=== PATIENT | female | born 1985 | race Caucasian/White ===

== ENCOUNTER 2023-03-29 08:21 | Outpatient (CLI) | payer OTHER, SELFPAY ==
--- NOTE | ~2023-03-29 | MMUS_ITS ---
EXAMINATION: MM diagnostic leonardo BI w dona, US breast BI limited HISTORY: Palpable lumps of the lower right breast and lower outer left breast. TECHNIQUE: Craniocaudal, mediolateral, and mediolateral oblique 3-D tomosynthesis images of the breas ts were performed and synthetic 2-D images were generated. CAD analysis was submitted and interpreted . High resolution limited bilateral breast ultrasound was performed. COMPARISON: None, baseline BREAST PARENCHYMAL COMPOSITION: There are scattered areas of fibroglandular density. FINDINGS: MAMMOGRAPHIC FINDINGS: No suspicious mass, calcification, or architectural distortion are identified in either breast to sug gest malignancy. No mammographic correlate is identified for the reported palpable abnormality of eit her breast. ULTRASOUND: No suspicious sonographic correlate is identified for the reported palpable abnormality of either marcia ast. There is a 4 mm cyst of the right breast at the 6:00 location 3 cm from the nipple. IMPRESSION: 1. No suspicious mammographic or sonographic correlate is identified for the reported palpable abnorm ality of concern in either breast. Further evaluation at this time should be based on clinical assess ment. Continued follow-up physical examination is recommended. 2. Recommend routine screening mammography beginning at age 40. BI-RADS Category 2: Benign finding(s). Reviewed, dictated and finalized at location A. IMPRESSION: 1. No suspicious mammographic or sonographic correlate is identified for the re ported palpable abnormality of concern in either breast. Further evaluation at this time should be based on clinical assessment. Continued follow-up physical examination is recommended. 2. Recommend routine screening mammography beginning at age 40. BI-RADS Category 2: Benign finding(s).
== END 2023-03-29 08:22 ==
PROVIDERS: PCP Obstetrics & Gynecology; Visit Provider Obstetrics & Gynecology
DX: N63.23 Unspecified lump in the left breast, lower outer quadrant (principal)
CPT/HCPCS: 76642; 77062; 77066; G0279

== ENCOUNTER 2023-06-21 01:45 | Day surgery (SDC) | payer OTHER, SELFPAY ==
[2023-06-16 14:44] VITALS: BMI 33.9
--- NOTE | 2023-06-16 14:50 | PC.NURSE ---
Report to the Outpatient Waiting Room, entrance under the green pavilion located off [facility], at time 11:15 on date 06/21/23. Planned Procedure Time: 1:15. Time changes happen often and if your time is changed the preop area will call you the afternoon before. - You and your visitor will be asked to self-screen and do not enter if you have any COVID symptoms. - A mask is optional within the hospital at this time. Patients may have clear liquids (water, carbonated beverages, clear teas, apple juice) until 3 hours prior to surgery (10:15) with a maximum of 20 ounces. - No food from midnight until time of surgery Take the following medications with a SIP of water the morning of surgery: INSULIN - 1/2 OF NORMAL DOSE (10 UNITS) DO NOT STOP ANY OF YOUR OTHER PRESCRIPTION MEDICATIONS PRIOR TO SURGERY ?EXCEPT THE FOLLOWING Medications to discontinue per physician: VITAMINS/SUPPLEMENTS Date to take last dose: 06/17/23 Please no make-up, nail micronesian, hairspray, perfume, deodorant, or body powder the day of surgery. No jewelry (including any body piercings) or valuables the day of surgery, leave them at home. Please take a shower or bath the night before, or the morning of, surgery with an antibacterial soap. Wear comfortable, loose fitting clothing. - Jewelry must be removed prior to entering the operating room. Rings and piercings that are not removed may be cut off. - The hospital will not accept responsibility for valuables. - Please leave all valuables, including medications, at home the day of surgery. If you are going home after surgery, a licensed cdl team truck driver must drive you home. - NO public transportation without another adult if you receive anesthesia. - We recommend that an adult stay with you for 24 hours following discharge. - We also recommend that you do not drive, make important decision, drink alcoholic beverages, or take any drugs that were not prescribed by your health care provider for at least 24 hours after your discharge time. Follow any additional instructions given to you from your surgeon. If you or anyone in your household have experienced Covid symptoms in the past week, please notify your surgeon or the nurse liaison at the phone number below for possible testing. Telephone instructions given to PT - DIONE MCGRAW and asked if any additional questions and then verbalized understanding. Patient advised to call surgeon office or pre surgery nurse liaison [phone] if any additional questions.
--- NOTE | 2023-06-20 11:07 | PM.IMHP ---
H&P: HPI History of Present Illness Date/Time: 06/20/23 11:07 Chief Complaint: AUB Narrative: Joanna is a 37yo P1001, who presents for scheduled surgery. She reports her cycles are decently regular, but are prolonging (~10days) and heavy w/ clots on days 2-4. She also has some cramping. She has DM that is completely uncontrolled; a1c on 02/05/23 was 12.9 --> now 8.8 on 05/07/23. She has PCOS (she didn't know that); free T is >10, total T is ~90. Wondering about a testosterone carolyn; has vasectomy. 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 EMB was attempted in office but was unsuccessful (only obtained endocervical tissue). Review of Systems Constitutional: Constitutional: Denies chills, Denies fever(s) and Denies headache(s) Eyes: Eyes: Denies change in vision ENT: Denies dizziness and Denies headache(s) Cardiovascular: Cardiovascular: Denies chest pain and Denies dyspnea Respiratory: Respiratory: Denies cough and Denies dyspnea Gastrointestinal: Gastrointestinal: Denies abdominal pain and Denies change in stool character Genitourinary: Genitourinary: Reports abnormal menses, Reports menorrhagia, Reports dysmenorrhea, Denies pelvic pain, Denies vaginal discharge, Denies vaginal odor and Denies vaginal pruritus Neurologic: Denies dizziness and Denies headache(s) Psychiatric: Psychiatric: Denies anxiety and Denies depression [facility] Past Medical History Medical History Diabetes Heart problem High blood pressure Surgical History Surgical History Delivery by section 2004 H/O gynecological procedure EMB 05/11/2023 Family History Family History Mother Cystic fibrosis Legal Guardian No problems noted. 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 Gender identity (if verbalized by the patient): Female Sexual Orientation (if Verbalized by the Patient): Straight or Heterosexual Spiritual care concerns: No Meds Home Medications and Allergies Home Medications Medication Instructions Recorded Confirmed Type magnesium 200 mg tablet 200 mg PO DAILY 02/25/23 06/16/23 History vitamin E (dl, acetate) 90 mg (200 90 mg PO DAILY 02/25/23 06/16/23 History unit) capsule spironolactone 50 mg tablet 50 mg PO DAILY #90 tabs 05/11/23 06/16/23 Rx flash glucose sensor (FreeStyle #3 ea 06/14/23 Rx Shania 14 Day Sensor kit) metformin 1,000 mg tablet 1,000 mg PO DAILY #90 tabs 06/14/23 06/16/23 Rx ferrous sulfate 325 mg (65 mg 325 mg PO DAILY 06/16/23 06/16/23 History iron) tablet (Iron (ferrous sulfate)) insulin NPH isoph U-100 human 100 20 unit subcut BID 06/16/23 06/16/23 History unit/mL (3 mL) subcutaneous pen (Novolin N FlexPen) insulin regular human 100 unit/mL 1 sliding scale dose subcut 06/16/23 06/16/23 History (3 mL) subcutaneous pen (Novolin R USEASDIRECTD FlexPen) omega 4-ktc-ror-fish oil 1,000 mg 1 cap PO DAILY 06/16/23 06/16/23 History (120 mg-180 mg) capsule (Fish Oil) vitamin D3 1,250 mcg (50,000 1 cap PO DAILY 06/16/23 06/16/23 History unit)-vitamin K2 200 mcg capsule Allergies Allergy/AdvReac Type Severity Reaction Status Date / Time No Known Allergies All
--- NOTE | 2023-06-21 10:34 | WPDHPUPDATE1 ---
History and Physical Update Update Date/Time: 06/21/23 10:34 History and Physical has been reviewed, including an updated exam of the patient. There are NO changes in the patient's condition. Risks, benefits, and alternatives have been discussed and questions answered. Patient agrees to proceed with hysteroscopy with D&C.
--- NOTE | 2023-06-21 10:55 | WPDANESEPPF ---
Anes - Initial Pre Proc Eval Procedure: Operation Date: 06/21/23 11:45 Proposed Procedures p Hysteroscopy Dilation and Curettage - Vivian Morrison MD Date/Time: 06/21/23 10:55 Surgeon: Vivian Morrison MD Pre Op Diagnosis: abnormal uterine bleeding Patient Data Age: 37 Gender: F Height: 1.5 m Weight: 76.2 kg Allergies Allergy/AdvReac Type Severity Reaction Status Date / Time No Known Allergies Allergy Mild Verified 06/16/23 14:40 Home Medications Medication Instructions Recorded Confirmed Type magnesium 200 mg tablet 200 mg PO DAILY 02/25/23 06/16/23 History vitamin E (dl, acetate) 90 mg (200 90 mg PO DAILY 02/25/23 06/16/23 History unit) capsule spironolactone 50 mg tablet 50 mg PO DAILY #90 tabs 05/11/23 06/16/23 Rx flash glucose sensor (FreeStyle #3 ea 06/14/23 Rx Shania 14 Day Sensor kit) metformin 1,000 mg tablet 1,000 mg PO DAILY #90 tabs 06/14/23 06/16/23 Rx ferrous sulfate 325 mg (65 mg 325 mg PO DAILY 06/16/23 06/16/23 History iron) tablet (Iron (ferrous sulfate)) insulin NPH isoph U-100 human 100 20 unit subcut BID 06/16/23 06/16/23 History unit/mL (3 mL) subcutaneous pen (Novolin N FlexPen) insulin regular human 100 unit/mL 1 sliding scale dose subcut 06/16/23 06/16/23 History (3 mL) subcutaneous pen (Novolin R USEASDIRECTD FlexPen) omega 7-jby-odl-fish oil 1,000 mg 1 cap PO DAILY 06/16/23 06/16/23 History (120 mg-180 mg) capsule (Fish Oil) vitamin D3 1,250 mcg (50,000 1 cap PO DAILY 06/16/23 06/16/23 History unit)-vitamin K2 200 mcg capsule acetaminophen 500 mg tablet 1,000 mg PO TID #60 tabs 06/21/23 Rx ibuprofen 800 mg tablet 800 mg PO TID #30 tabs 06/21/23 Rx Patient hx anesthesia problems: none Family hx anesthesia problems: none Results Review: All pre-operative results and documents have been reviewed as part of the pre-operative evaluation. [facility] Past Medical History Medical History Diabetes Heart problem High blood pressure Surgical History Surgical History Delivery by section 2004 H/O gynecological procedure EMB 05/11/2023 Family History Family History Mother Cystic fibrosis Legal Guardian No problems noted. 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 Gender identity (if verbalized by the patient): Female Sexual Orientation (if Verbalized by the Patient): Straight or Heterosexual Spiritual care concerns: No Anes - Eval Final PreProcedure Day of Procedure 06/21/23 10:55 Patient weight: obese Heart: regular rate and rhythm Lungs: clear to auscultation Airway: Mallampati scale class II Neurological: alert and oriented Last oral intake: >/= 8 hours ASA classification: III Emergent: no Anesthetic plan: proceed Anesthesia type and monitoring: general GIVS and standard monitoring Results Review: All pre-operative results and documents have been reviewed as part of the pre-operative evaluation. Informed Consent: The patient's anesthetic plan and its attendant risks and benefits were discussed with the patient/family/POA. Questions were solicited and answers provided to the satisfaction of the patient/family/POA.
[2023-06-21 11:12] LABS: Glucose Point of Care 174 mg/dl (65-105)
[2023-06-21 11:13] LABS: Hematocrit 43.9 % (37.0-47.0)
[2023-06-21 11:14] VITALS: BP 133/87; PULSE 101; RESP 18; TEMP 36.8; O2SAT 99
[2023-06-21] MEDS: KETOROLAC 30 MG/ML VIAL (*BKC) IV PUSH (11:47)
--- NOTE | 2023-06-21 12:12 | W.PM.PROC2 ---
Procedure Note - Detailed Date of Procedure 06/21/23 Pre-op Diagnosis abnormal uterine bleeding PCOS Post-op Diagnosis Same Procedure Performed Hysteroscopy with endometrial biopsy Surgeon Vivian Morrison MD Anesthesia MAC Findings Tortuous cervix (the canal trended upward, then half way trended downward). Normal cavity with bilateral tubal ostia visualized. Good hemostasis at end of case. Description of Procedure Joanna was taken to the operating room where she was placed under sedation without complications. She was then prepped and draped in the usual sterile fashion in the dorsal lithotomy position with her legs in low Colton stirrups. A time-out was performed and no perioperative antibiotics were indicated. A bivalve speculum was placed within the vagina where the cervix was easily identified. The anterior lip of the cervix was grasped with a single-tooth tenaculum. A sound was used to measure the uterus; but showed 4cm (also noted when performing in office EMB). The hysteroscope was advanced into the cervix and uterine cavity with the above findings noted. Due to the tortuous cervix; an endometrial sample was obtained using the small Aveta tissue sampler. A sample was obtained from all quadrants of the uterus. Good hemostasis was noted. All instruments were removed from the vagina. Sponge, lap, instrument, and needle counts were correct at the end of the procedure. Patient was awoken from anesthesia and taken to recovery with plans of same-day discharge home. Estimated Blood Loss 5 IV Fluids 650 (Fluid deficit: 50cc) Pathology Yes (endometrial shavings) Complications No immediate complications Condition Stable Disposition Same day [facility] Billing Surgery - Charge Forward: Surgery Billing
[2023-06-21 12:17] VITALS: BP 122/85; PULSE 96; RESP 16; O2SAT 95
[2023-06-21 12:26] LABS: Glucose Point of Care 166 mg/dl (65-105)
[2023-06-21 12:50] VITALS: BP 104/78; PULSE 92; RESP 16
[2023-06-21] MEDS: oxyCODONE HCL (*CRX) 5 MG TAB IR PO (12:53)
[2023-06-21 13:20] VITALS: BP 133/84; PULSE 85; RESP 16
== END 2023-06-21 13:30 | disposition home or self-care (01) ==
PROVIDERS: PCP Family Medicine; Visit Provider Obstetrics & Gynecology
PROC: 0U5B8ZZ Destruction of Endometrium, Via Natural or Artificial Opening Endoscopic (ICD-10-PCS; CPT 58563; principal; 2023-06-21 11:45)
DX: N93.9 Abnormal uterine and vaginal bleeding, unspecified (principal); E28.2 Polycystic ovarian syndrome; Z79.4 Long term (current) use of insulin; I10 Essential (primary) hypertension; E11.9 Type 2 diabetes mellitus without complications; Z79.84 Long term (current) use of oral hypoglycemic drugs; F17.290 Nicotine dependence, other tobacco product, uncomplicated; F12.90 Cannabis use, unspecified, uncomplicated; E66.9 Obesity, unspecified; Z68.38 Body mass index [BMI] 38.0-38.9, adult
CPT/HCPCS: 58558; 36415; 82948; 85014; 85018; 88305; A9270; J1885; J2250; J2704; J3010

== ENCOUNTER 2023-09-11 20:11 | Emergency (ER) | payer OTHER, SELFPAY ==
--- NOTE | ~2023-09-11 | CT_ITS ---
Non-contrast CT scan of the Abdomen and Pelvis Clinical indication: Abdominal pain Technique: 2.5 mm axial scans were obtained through the abdomen and pelvis without intravenous or or al contrast. Dose reduction technique was used on this scan by utilizing automated exposure control a nd iterative reconstruction technique. The dose-length product (DLP) was 798.07 mGy-cm. Findings: Images through the lung bases reveal extensive consolidation left lower lobe, with somewha t patchy nodular appearance, most consistent with pneumonia.. There is no evidence of renal or ureteral calculi. The kidneys and the ureters are nondilated. The liver, spleen, pancreas, gallbladder, and right adrenal gland appear normal. Left adrenal nodule demonstrates Hounsfield units of 5, consistent with benign adenoma. There is no aortic aneurysm. There is no evidence of bowel obstruction. Images through the pelvis were performed. There is no evidence of ascites or lymphadenopathy. Urinary bladder unremarkable. No adnexal mass seen. Impression: Extensive left lower lobe pneumonia. Left adrenal adenoma. Reviewed, dictated and finalized at [facility]. AGE CLERK Impression: Extensive left lower lobe pneumonia. Left adrenal adenoma.
[2023-09-11 20:16] VITALS: BP 143/101; PULSE 109; RESP 18; TEMP 36.7; O2SAT 99
--- NOTE | 2023-09-11 20:29 | ED.ABDPAIN ---
HPI - Abdominal Pain General Chief Complaint: Abdominal Pain Stated Complaint: N/V/D, abd pain Time Seen by Provider: 09/11/23 20:24 Source: patient and other ( Fiance) Mode of arrival: ambulatory Limitations: no limitations History of Present Illness HPI narrative: this is a 37-year-old female who presents with nausea, vomiting, diarrhea. They also have diffuse but generalized abdominal pain above the umbilicus across the right upper quadrant / epigastrium/ left upper quadrant and radiating upward. In addition she notes low back pain, along the left flank. she is having generalized weakness. She has had numerous episodes of diarrhea that has been nonbloody. She has had approximately 5 episodes of nonbloody nonbilious emesis. She has concern for dehydration. No history of fevers. She does have a history of type 2 diabetes mellitus and is on a regimen of Mounjaro/tirzepatide (5mg weekly, dose increased last month, last dose Wednesday) , 36 U Toujeo/insulin glargine daily (not taken today), metformin 1000mg BID, and an additional fast acting insulin PRN. Her fiance with whom she lives has been sick with sinus infection but otherwise not similar symptoms. No dysuria, hematuria, urgency, or frequency. No previous episodes of DKA. Related Data Home Medications Medication Instructions Recorded Confirmed magnesium 200 mg tablet 200 mg PO DAILY 02/25/23 07/27/23 vitamin E (dl, acetate) 90 mg (200 90 mg PO DAILY 02/25/23 07/27/23 unit) capsule ferrous sulfate 325 mg (65 mg 325 mg PO DAILY 06/16/23 07/27/23 iron) tablet (Iron (ferrous sulfate)) insulin regular human 100 unit/mL 1 sliding scale dose subcut 06/16/23 07/27/23 (3 mL) subcutaneous pen (Novolin R USEASDIRECTD FlexPen) omega 8-syh-dqa-fish oil 1,000 mg 1 cap PO DAILY 06/16/23 07/27/23 (120 mg-180 mg) capsule (Fish Oil) vitamin D3 1,250 mcg (50,000 1 cap PO DAILY 06/16/23 07/27/23 unit)-vitamin K2 200 mcg capsule magnesium PO 06/23/23 07/27/23 Allergies Allergy/AdvReac Type Severity Reaction Status Date / Time No Known Allergies Allergy Mild Verified 09/11/23 20:53 [facility] Past Medical History Medical History (Updated 09/11/23 @ 23:08 by Claire Watson MD) Heart problem High blood pressure Insulin dependent diabetes mellitus Kidney stone PCOS (polycystic ovarian syndrome) Surgical History Surgical History Delivery by section 2004 H/O gynecological procedure EMB 05/11/2023 History of hysteroscopy Hysteroscopy with endometrial biopsy 06/21/2023 Family History Family History Mother Cystic fibrosis Legal Guardian No problems noted. 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 HEAD: Normocephalic, atraumatic. EYES: Non injected, non icteric ENT: Nares clear, no rhinorrhea or epistaxis. Tacky mucous membranes NECK: Supple. CHEST: Speaking in complete sentences. No respiratory distress. HEART: Tachycardic
[2023-09-11 20:51] VITALS: BP 135/96; PULSE 103; RESP 12; O2SAT 97
[2023-09-11 20:53] LABS: Basophils Absolute Auto 0.1 K/mm3 (0.0-0.1); Basophils Percent Auto 0.5 % (0.2-1.2); Eosinophils Absolute Auto 0.2 K/mm3 (0-0.3); Eosinophils Percent Auto 1.8 % (0-4.4); Hematocrit 42.4 % (37.0-47.0); Hemoglobin 13.2 g/dL (12.0-15.0); Immature Granulocyte Absolute 0.05 K/mm3 (0.00-0.031); Immature Granulocyte Percent A 0.4 % (0-0.5); Lymphocytes Absolute Auto 2.76 K/mm3 (0.9-3.2); Lymphocytes Percent Auto 23.9 % (18.3-44.2); Mean Corpuscular HGB Conc 31.1 g/dl (32-36); Mean Corpuscular Hemoglobin 24.9 pg (26-34); Mean Corpuscular Volume 79.8 fl (80-100); Mean Platelet Volume 10.1 fl (7.4-10.4); Monocytes Absolute Auto 0.5 K/mm3 (0.1-0.6); Monocytes Percent Auto 4.7 % (2.6-8.5); Neutrophils Percent Auto 68.7 % (45.5-73.1); Platelet Count Result 420 k/mm3 (150-375); Red Blood Count 5.31 M/mm3 (4.2-5.4); Red Cell Distribution Width 13.2 % (11.5-14.5); White Blood Count 11.6 K/mm3 (4.5-10.0)
[2023-09-11 20:53] LABS: Glucose Point of Care 95 mg/dl (65-105)
[2023-09-11] MEDS: SODIUM CHLORIDE 0.9% IV 1,000 ML 999 ML IV CONT (20:53)
[2023-09-11] MEDS: ONDANSETRON INJ 4 MG/2 ML VIAL IV PUSH (20:56)
[2023-09-11 20:58] LABS: Appearance Urine Clear (Clear); Bacteria Urine 1+ /hpf; Bilirubin Urine Negative (Negative); Blood Urine Negative (Negative); Color Urine Yellow (Yellow); Glucose Urine UA Negative (Negative); Ketones Urine 1+ mg/dL (Negative); Leukocyte Esterase Ur Trace LEU/UL (Negative); Nitrate Urine Negative (Negative); Non Pathogenic Casts 0-2; Protein Urine Negative (Negative); RBC Urine 0-2 /hpf (0-2); Specific Grav Ur 1.028 (1.001-1.035); Squamous Epithelial Cell Urine Few /hpf (Few); Urobilinogen Urine 0.2 mg/dL (<2.0); WBC Urine 0-5 /hpf; pH Urine 5.5 (5.0-9.0)
[2023-09-11 21:03] LABS: Alanine Aminotransferase 18 U/L (6-35); Albumin Level 4.2 g/dL (3.5-5.1); Alkaline Phosphatase 72 U/L (38-126); Anion Gap 10 mmol/L (8-16); Aspartate Amino Transferase 21 U/L (14-36); Bilirubin,Total 0.6 mg/dL (0.2-1.3); Blood Urea Nitrogen 13 mg/dL (7-17); Calcium 9.3 mg/dL (8.4-10.2); Carbon Dioxide 23 mmol/L (22-30); Chloride 104 mmol/L (98-107); Creatine Kinase 56 U/L (30-135); Estimated Glomerular Filt Rate > 60; Glucose 100 mg/dL (65-110); Lipase 73 U/L (23-300); Sodium 137 mmol/L (137-145)
[2023-09-11 21:16] LABS: Add Urine Microscopic? YES
[2023-09-11] MEDS: MORPHINE SULFATE (*CRX) 4 MG/ML INJ IV PUSH (21:26)
[2023-09-11] MEDS: PROCHLORPERAZINE EDISYLATE 10 MG/2 ML VIAL IV PUSH (21:26)
[2023-09-11 21:32] LABS: Influenza A QL RT-PCR Negative (Negative); Influenza B QL RT-PCR Negative (Negative); SARS-CoV-2 RNA PCR Negative (Negative)
[2023-09-11] MEDS: HALOPERIDOL LACTATE 5 MG/ML VIAL 2.5 MG IV PUSH (22:52)
[2023-09-11] MEDS: AZITHROMYCIN 500 MG/NS 250 ML 500 MG/250 ML BAG 250 MG IVPB (22:54)
[2023-09-11] MEDS: DICYCLOMINE HCL 10 MG CAPSULE PO (23:27)
[2023-09-12 00:08] VITALS: BP 123/77; PULSE 102; RESP 17; TEMP 37.3; O2SAT 98
== END 2023-09-12 00:09 | disposition home or self-care (01) ==
PROVIDERS: Emergency Provider Student in an Organized Health Care Education/Training Program; PCP Family Medicine
DX: J18.9 Pneumonia, unspecified organism (principal); R11.2 Nausea with vomiting, unspecified; R19.7 Diarrhea, unspecified; Z20.822 Contact with and (suspected) exposure to COVID-19; I10 Essential (primary) hypertension; E11.9 Type 2 diabetes mellitus without complications; E28.2 Polycystic ovarian syndrome; Z87.442 Personal history of urinary calculi; Z79.4 Long term (current) use of insulin; Z79.84 Long term (current) use of oral hypoglycemic drugs; D35.02 Benign neoplasm of left adrenal gland
CPT/HCPCS: 36415; 74176; 80053; 81001; 81025; 82550; 82948; 83690; 85025; 87636; 96361; 96365; 96375; 99284; A9270; J0456; J0780; J1630; J2270; J2405; J7030

== ENCOUNTER 2024-05-19 07:30 | Outpatient (CLI) | payer OTHER, SELFPAY ==
[2024-05-19 10:47] LABS: Cortisol Random 1.42 ug/dL
== END 2024-05-19 07:31 | disposition home or self-care (01) ==
LOC: ANHLAB 07:42
PROVIDERS: PCP Family Medicine; Visit Provider Nurse Practitioner Family
DX: D35.00 Benign neoplasm of unspecified adrenal gland (principal)
CPT/HCPCS: 36415; 82533

== ENCOUNTER 2024-11-27 09:26 | Emergency (ER) | payer OTHER, SELFPAY ==
[2024-11-27 09:33] VITALS: BP 130/91; PULSE 84; RESP 15; TEMP 36.4; O2SAT 100
--- NOTE | 2024-11-27 10:23 | PC.NURSE ---
Pt called for room placement, not in waiting room
--- OUTSIDE RECORDS SUMMARY | 2024-11-27 10:26 | XMS_ITS | Clinical Summary ---
Author Organization [facility] Address [address] [place] [address] Care Team Providers Care Network Security Architect Name Role Phone Lenora Baca Primary Care Provider [phone] Dago Nguyen MD Unavailable [phone] Allergies Active Allergy Reactions Criticality Noted Date Comments Mangifera Indica Hives,Swelling,Conta ct Dermatitis High 07/17/2018 Inflamation, facial and throat swelling, ear pressure Pt is allergic to mangos. Medications FLUTICASONE PROPIONATE 50 MCG/ACT nasal sprayIndication s:Dysfunction of right eustachian tube SPRAY 1 SPRAY INTO EACH NOSTRIL EVERY DAY 48 mL 1 0 Active OneTouch Delica Lancets 33G MiscIndications :Type 2 diabetes mellitus without complication, with long-term current use of insulin ([facility] HHS/[facility]) fingersticks 3-4 times daily 300 each 3 1 Active insulin lispro, 1 Unit Dial, (HUMALOG KWIKPEN) 100 UNIT/ML injection (PEN)Indication s:Type 2 diabetes mellitus without complication, with long-term current use of insulin (CMS/HCC HHS/HCC) Inject 14 Units into the skin 3 (three) times daily before meals. 30 mL 1 2 Active Continuous Blood Gluc Environmental Marketing Representative (FREESTYLE OLINDA 14 DAY READER) DeviceIndicatio ns:Type 2 diabetes mellitus without complication, with long-term current use of insulin ([facility]/HCC HHS/HCC) USE WITH OLINDA 14 DAY SENSOR DIRECTED 6 each 1 2 Active Insulin Pen Needle (PEN NEEDLES) 31G X 5 MM MiscIndications :Type 2 diabetes mellitus without complication, with long-term current use of insulin ([facility]/HCC HHS/HCC) 1 Units by Does not apply route 4 (four) times daily. 400 each 3 2 Active ONETOUCH VERIO test stripIndication s:Type 2 diabetes mellitus without complication, with long-term current use of insulin ([facility]/HCC HHS/HCC) 1 strip by Other route 3 (three) times daily. 300 strip 3 2 Active MISC NATURAL PRODUCT OP milkweed thistle daily Active metoprolol succinate ER (TOPROL-XL) 100 MG 24 hr tabletIndicatio ns:Tachycardia, Hypertension, benign Take 1 tablet (100 mg total) by mouth daily. 30 tablet 1 3 Active insulin glargine (LANTUS SOLOSTAR) 100 UNIT/ML injection (PEN)Indication s:Type 2 diabetes mellitus without complication, with long-term current use of insulin (CMS/HCC HHS/HCC) Inject 35 Units into the skin nightly at bedtime. 15 pen 1 3 Active metFORMIN (GLUCOPHAGE) 1000 MG tabletIndicatio ns:Type 2 diabetes mellitus without complication, with long-term current use of insulin ([facility]/HCC HHS/HCC) Take 1 tablet (1,000 mg total) by mouth 2 (two) times daily with meals. 360 tablet 3 3 Active tirzepatide (MOUNJARO) 2.5 MG/0.5ML injectionIndica tions:Type 2 diabetes mellitus without complication, with long-term current use of insulin (CMS/HCC HHS/HCC) Inject 2.5 mg into the skin once a week. 2 mL 5 3 Active Continuous Blood Gluc Sensor (FREESTYLE OLINDA 14 DAY SENSOR) MiscIndications :Type 2 diabetes mellitus without complication, with long-term current use of insulin ([facility]/HCC HHS/HCC) Apply as directed on package 2 each 3 3 Active Active Problems Problem Noted Date Diagnosed Date Mixed hyperlipidemia 05/22/2020 BMI 37.0-37.9, adult 04/12/2020 Allergic angioedema 07/18/2018 Overview (11/16/2018): Last Assessment & Plan: Suspect 2/2 Mangos ingested. Edema is improving. IV solumedrol. Hyponatremia 07/18/2018 Overview (11/16/2018): Last Assessment & Plan: 2/2 hyperglycemia. Given IVF. Will recheck bmp in am. Type 2 diabetes mellitus wit hout complication, with long-term current use of insulin ([facility]) 07/18/2018 Overview (11/16/2018): Last Assessment & Plan: Glucose 515 on admission. Endocrine has been consulted for which we appreciate their evaluation and recommendations. A1c pending. Lantus, NPH and SSI initiated. Most recent check is 320. Monitor closely. Heart palpitations 06/05/2018 Anxiety 06/03/2018 Back pain, chronic 06/03/2018 Depression 06/03/2018 Hypertension, benign 06/03/2018 Encounter for preventive health examination 05/07 Disorder of intervertebral disc 06/30/2016 Overview (11/16/2018): Overview: Arthropathy of spinal facet joint Overview: Lumbar disc disease Last Assessment & Plan: Prn analgesics. Tachycardia Immunizations Name Administration Dates Next Due Tdap (Adacel) 05/14/2022 Family History Medical History Relation Comments Diabetes Father Cancer Maternal Aunt Diabetes Maternal Aunt Hypertension Maternal Aunt Stroke Maternal Aunt Heart Disease Maternal Grandfather Alzheimers Maternal Grandmother Hypertension Maternal Grandmother Parkinson's Disease Maternal Grandmother Diabetes Mother Hypertension Mother Lung Disease Mother Relation Status Comments Father Maternal Aunt Maternal Grandfather Maternal Grandmother Mother Social History Tobacco Use Types Packs/Day Years Used Date Smoking Tobacco: Never Smokeless Tobacco: Never Alcohol Use Standard Drinks/Week Comments Yes 0 (1 standard drink = 0.6 oz pur e alcohol) AUDIT-C Answer Date Recorded Frequency of Alcohol Consumption Monthly or less 09/07/2018 Average Number of Drinks Not on file 019 Frequency of Binge Drinking Not on file 10/2018 PHQ-2 Answer Date Recorded PHQ-2 Score - If the patient scores above 3, please move on to questions 3-9 6 08/27/2021 Comments No Sex and Gender Information Value Date Recorded Sex Assigned at Not on file Legal Sex Female 4:47 PM CDT Gender Identity Not on file Sexual Orientation Not on file Last Filed Vital Signs Vital Sign Reading Time Taken Comments Blood Pressure 144/96 10/08/2022 1:26 PM MANAGER LEADERSHIP DEVELOPMENT Pulse 100 10/08/2022 12:37 PM [employer]GER [employer]OP[employer] Temperature 37 C (98.6 F) 10/08/2022 12:37 PM MANAGER [employer]ELOPMENT Respiratory Rate 16 10/08/2022 12:37 PM MANAGER [employer]ER[employer]ELOPMENT Oxygen Saturation 99% 10/08/2022 12:37 PM MANAGER LEADERSHIP DEVELOPMENT Inhaled Oxygen Concentration - - Weight 85.7 kg (189 lb) 10/08/2022 12:37 PM [employer]NAGER [employer]ELOP[employer] Height 149.9 cm (4' 11 ) 10/08/2022 12:37 PM MANAGER LEADERSHIP DEVELOPMENT Body Mass Index 38.17 10/08/2022 12:37 PM MANAGER LEADERSHIP DEVELOPMENT Plan of Treatment Health Maintenance Due Date Last Done Comments Cervical Cancer Screening Pap Smear (Age 30 to 64) Every 3 Years 1986 Kidney Health Evaluation 1986 Pneumococcal Vaccine: Pediatrics (0 to 5 Years) and At-Risk Patients (6 to 64 Years) (1 of 2 - PCV) 1992 Diabetes: Retinopathy Eye Exam 2004 Hepatitis C 2004 Hepatitis B Vaccines (1 of 3 - 19+ 3-dose series) 2005 Cervical Cancer Screening Pap with HPV Testing (Age 30 to 64) Every 5 Years 2016 Cervical Cancer Screening with HPV 2016 Lipid Panel 04/26/2021 04/26/2020 Annual Physical 01/29/2022 01/29/2021 Hemoglobin A1C 01/05/2023 10/08/2022, 09/0 04/2022, 01/29/2021, Additional history exists COVID-19 Vaccine ( - season) 2024 Influenza Adult (#1) 2024 PHQ-2 (Physician [place]) 09/06/2024 DTaP, Tdap and Td Vaccines (2 - Td or Tdap) 05/14/2032 05/14/2022 HPV Vaccines Aged Out No longer eligi ble based on patient's age to complete this topic Meningococcal B Vaccine Aged Out No l onger eligible based on patient's age to complete this topic Meningococcal Vaccine Aged Out No sona be eligible based on patient's age to complete this topic RSV Immunizations Under 20 Months Aged Out No longer eligible based on patient's age to complete this topic Procedures Procedure Name Priority Date/Time Associated Diagnosis Comments HEMOGLOBIN, GLYCOSYLATED Routine 10/08/2022 Type 2 diabetes mellitus without complication, with long-term current use of insulin LIPID PANEL Routine 04/26/2020 8:34 AM CDT Type 2 diabetes mellitus without complication, with long-term current use of insulin Encounter For Preventive Health Examination from Last 3 Months or Most Recently Relevant to Health Maintenance Results * (ABNORMAL) HEMOGLOBIN, GLYCOSYLATED (10/08/2022) HGB A1C 11.9(A) % [facility] 10/08/2022 [facility] Final Resul t Performing Organization Address [facility] de Phone Number [place] [address] [place] [address], * (ABNORMAL) LIPID PANEL (04/26/2020 8:34 AM CDT) CHOLESTEROL 215(H) 100 - 199 mg/dL [facility] 1 TRIGLYCERIDES 235(H) 0 - 149 mg/dL [facility] 1 HDL 59 >39 mg/dL [facility] 1 VLDL CALCULATION 47(H) 5 - 40 mg/dL [facility] 1 LDL (CALCULATED) 109(H) 0 - 99 mg/dL [facility] 1 04/26/2020 8:34 AM CDT 04/26/2020 Narrative [facility] - 04/27/2020 9:36 AM CDT Performed at: 01 - [facility] [id number] Phone Representative: Wojciech Bautista PhD, Phone: [phone] [facility] Final Resul t Performing Organization Address City/[facility]/ZIP Co de Phone Number [facility] [address] [place] [address] [facility] 1 from Last 3 Months or Most Recently Relevant to Health Maintenance Insurance [facility] Care Teams Network Security Architect Relationship Specialty Start Date End Date Lenora Baca APNP [address] [place] [address] PCP - General FAMILY PRACTICE 07/19/18 Dago Nguyen MD [facility] [address] [place] [address] David Harness Tier INTERVENTIONAL CARDIOLOGY 10/04/18
--- OUTSIDE RECORDS SUMMARY | 2024-11-27 10:26 | XMS_ITS | Encounter Summary ---
Author Organization [facility] Address [facility] [place] [address] Care Team Providers Care Green Prize Packer Name Role Phone Lenora Baca Primary Care Provider [phone] Dago Nguyen MD Unavailable [phone] Encounter Details Date Type Department Care Team (Late st Contact Info) Description 05/23/2018 Abstract [facility] Family & Internal Medicine [facility] [address] [place] [address] Lenora Baca APNP [address] [place] [address] Social History Tobacco Use Types Packs/Day Years Used Date Smoking Tobacco: Never Assessed Comments Unknown Sex and Gender Information Value Date Recorded Sex Assigned at Not on file Legal Sex Female 4:47 PM CDT Gender Identity Not on file Sexual Orientation Not on file documented as of this encounter Plan of Treatment Not on file documented as of this encounter Visit Diagnoses Not on filedocumented in this encounter Care Teams Green Prize Packer Relationship Specialty Start Date End Date Lenora Baca APNP [address] [place], [place] [phone] PCP - General FAMILY PRACTICE 07/19/18 Dago Nguyen MD [address] [phone] David Hat Braider INTERVENTIONAL CARDIOLOGY 10/04/18 documented as of this encounter
--- OUTSIDE RECORDS SUMMARY | 2024-11-27 12:21 | XMS_ITS | Encounter Summary ---
Author Organization [facility] Address [facility] [place] [address] Care Team Providers Care Manager Revenue Name Role Phone Lenora Baca Primary Care Provider [phone] Dago Nguyen MD Unavailable [phone] Encounter Details Date Type Department Care Team (Late st Contact Info) Description 05/23/2018 Abstract [facility] Family & Internal Medicine [facility] [address] [place] [address] Lenora Baca APNP [address] [place] [address] Social History Tobacco Use Types Packs/Day Years [...] on filedocumented in this encounter Care Teams Manager Revenue Relationship Specialty Start Date End Date Lenora Baca APNP [address] [place], [place] [phone] PCP - General FAMILY PRACTICE 07/19/18 Dago Nguyen MD [address] [phone] David Mold Carpenter INTERVENTIONAL CARDIOLOGY 10/04/18 documented as of this encounter
--- OUTSIDE RECORDS SUMMARY | 2024-11-27 12:21 | XMS_ITS | Clinical Summary ---
Author Organization [facility] Address [address] [place] [address] Care Team Providers Care Venture Capitalist Name Role Phone Lenora Baca Primary Care Provider Dago Nguyen MD Unavailable [phone] Allergies Active Allergy Reactions Criticality Noted Date [...] complication, with long-term current use of insulin ([facility] HHS/[facility]) fingersticks 3-4 times daily 300 each 3 1 Active insulin lispro, 1 Unit Dial, (HUMALOG KWIKPEN) 100 UNIT/ML injection (PEN)Indication s:Type 2 diabetes mellitus without complication, with long-term current use of insulin (CMS/HCC HHS/HCC) Inject 14 Units into the skin 3 (three) times daily before meals. 30 mL 1 2 Active Continuous Blood Gluc Delivery Analyst (FREESTYLE OLINDA 14 DAY READER) DeviceIndicatio ns:Type 2 diabetes mellitus without complication, with long-term current use of insulin ([facility]/HCC HHS/HCC) USE WITH OLINDA 14 DAY SENSOR DIRECTED 6 each 1 2 Active Insulin Pen Needle (PEN NEEDLES) 31G X 5 MM MiscIndications :Type 2 diabetes mellitus without complication, with long-term current use of insulin ([facility]/HCC HHS/HCC) 1 Units by Does not apply route 4 (four) times daily. 400 each 3 2 Active ONETOUCH VERIO test stripIndication s:Type 2 diabetes mellitus without complication, with long-term current use of insulin ([facility]/HCC HHS/HCC) 1 strip by Other route 3 [...] complication, with long-term current use of insulin ([facility]/HCC HHS/HCC) Take 1 tablet (1,000 mg total) [...] complication, with long-term current use of insulin ([facility]/HCC HHS/HCC) Apply as directed on package 2 [...] complication, with long-term current use of insulin ([facility]) 07/18/2018 Overview (11/16/2018): Last Assessment & [...] Comments Blood Pressure 144/96 10/08/2022 1:26 PM LACE SEWER Pulse 100 10/08/2022 12:37 PM LACE SEWER Temperature 37 C (98.6 F) 10/08/2022 12:37 PM LACE SEWER Respiratory Rate 16 10/08/2022 12:37 PM LACE SEWER Oxygen Saturation 99% 10/08/2022 12:37 PM LACE SEWER Inhaled Oxygen Concentration - - Weight 85.7 kg (189 lb) 10/08/2022 12:37 PM LACE SEWER Height 149.9 cm (4' 11 ) 10/08/2022 12:37 PM LACE SEWER Body Mass Index 38.17 10/08/2022 12:37 PM LACE SEWER Plan of Treatment Health Maintenance Due Date [...] 2024 Influenza Adult (#1) 2024 PHQ-2 (Physician [place]) 09/06/2024 DTaP, Tdap and Td Vaccines (2 [...] HEMOGLOBIN, GLYCOSYLATED (10/08/2022) HGB A1C 11.9(A) % [facility] 10/08/2022 [facility] Final Resul t Performing Organization Address [facility] de Phone Number [place] [phone] [place] [address], * (ABNORMAL) LIPID PANEL (04/26/2020 8:34 AM [...] 9:36 AM CDT Performed at: 01 - [facility] [id number] Insulation Technician: Wojciech Bautista PhD, Phone: [phone] [facility] Final Resul t Performing Organization Address City/[facility]/ZIP Co de Phone Number [facility] [address] [place] [address] [facility] 1 from Last 3 Months or Most Recently Relevant to Health Maintenance Insurance [facility] Care Teams Venture Capitalist Relationship Specialty Start Date End Date Lenora Baca APNP [address] [place] [phone] PCP - General FAMILY PRACTICE 07/19/18 Dago Nguyen MD [facility] [address] [place] [address] David Civil Engineering Draftsperson INTERVENTIONAL CARDIOLOGY 10/04/18
== END 2024-11-27 10:39 | disposition left against medical advice (07) ==
LOC: ANHED 10:34
PROVIDERS: PCP Family Medicine
DX: R11.2 Nausea with vomiting, unspecified (principal)
CPT/HCPCS: 99199